=== PATIENT | female | born 1950 | race Caucasian/White ===

== ENCOUNTER → 2023-08-27 | Outpatient (CLI) | payer MEDICARE | END | disposition home or self-care (01) | LOC: LABPAT 13:42 | PROVIDERS: ATTEND Orthopaedic Surgery | DX: Z01.812 Encounter for preprocedural laboratory examination (principal); M16.12 Unilateral primary osteoarthritis, left hip; Z22.322 Carrier or suspected carrier of Methicillin resistant Staphylococcus aureus | CPT/HCPCS: 36415; 86850; 86900; 86901; 87070 ==

== ENCOUNTER 2023-09-08 09:19 | Day surgery (SDC) | payer MEDICARE, OTHER ==
[~2023-09-08 09:19] MED LIST: TRANEXAMIC 1,000 MG/100ML-NACL 1,000 MG in SALINE 1 100ML.BAG IVPB PRN
[2023-09-08] MEDS ORDERED: HYDROmorphone 0.5 MG/0.5 ML SYRINGE IVP PRN ×4 (09:34→12:46)
[2023-09-08] MEDS ORDERED: MIDAZOLAM 2 MG/2 ML VIAL IV PRN (09:34)
[2023-09-08] MEDS: MELOXICAM 7.5 MG TAB PO PRN (10:17)
[2023-09-08] MEDS: LACTATED RINGERS 1,000 ML IV SCH (10:17)
[2023-09-08] MEDS: GABAPENTIN 300 MG CAP PO PRN (10:17)
[2023-09-08] MEDS: ACETAMINOPHEN TAB 500 MG TAB PO PRN (10:18)
[2023-09-08] MEDS: ONDANSETRON 4 MG/2 ML VIAL IVP ONE (10:18)
[2023-09-08] MEDS: DEXAMETHASONE SOD PHOSPHATE 4 MG/ML 1 ML VIAL IV ONE (10:18)
[2023-09-08] MEDS: IV FLUID CONTINUATION 1,000 ML IV ONE (10:19)
[2023-09-08] MEDS: MIDAZOLAM 2 MG/2 ML VIAL IVP ONE (10:30)
--- NOTE | 2023-09-08 10:40 | P.ANPRN ---
Procedure Note - Anesthesia - Nerve Block Performed Left Prudencio Single Time Out Performed: Yes Date of Procedure: 09/08/23 Procedure Start Time: 10:29 Procedure Stop Time: 10:34 Location of Patient: PreOp Indication: Requested by Surgeon Sedation Type: Sedate with meaningful contact maintained Preparation: Sterile Prep, Sterile Dressing Position: Supine Catheter: None Needle Types: Pajunk Needle Gauge: 21 Ultrasound used to visualize needle placement: Yes Ultrasound used to observe medication spread: Yes Injectate: 0.5% Ropivacaine (see comment for volume) ([id number]) Blood Aspirated: No Pain Paresthesia on Injection Noted: No Resistance on Injection: Normal Image Stored and Saved: Yes Events: Uneventful and Well Tolerated
[2023-09-08] MEDS ORDERED: fentaNYL (PF) 50 MCG/ML 2 ML AMP ONE (10:59)
[2023-09-08] MEDS ORDERED: DEXAMETHASONE SOD PHOSPHATE 4 MG/ML 1 ML VIAL ONE (10:59)
[2023-09-08] MEDS ORDERED: PROPOFOL 10 MG/ML 20 ML VIAL IV ONE (10:59)
[2023-09-08] MEDS ORDERED: TRANEXAMIC 1,000 MG/100ML-NACL PREMIX BAG ONE (10:59)
[2023-09-08] MEDS ORDERED: KETOROLAC 15 MG/ML 1 ML VIAL ONE (10:59)
[2023-09-08] MEDS ORDERED: PHENYLEPHRINE-0.9% NACL SYG 1,000 MCG/10 ML SYRINGE ONE (10:59)
[2023-09-08] MEDS ORDERED: MIDAZOLAM 2 MG/2 ML VIAL ONE (10:59)
[2023-09-08] MEDS ORDERED: ROPIVACAINE 5 MG/ML 30 ML VIAL ONE (10:59)
[2023-09-08] MEDS: ceFAZolin 1,000 MG in SODIUM CHLORIDE 0.9% 1,000 ML IRRIGATION ONE (11:05)
[2023-09-08] MEDS: ROPIVACAINE 5 MG/ML 30 ML VIAL MISCELLANE ONE ×2 (11:41→12:08)
[2023-09-08] MEDS: LACTATED RINGERS 1,000 ML IV ONE (12:03)
--- NOTE | 2023-09-08 12:14 | P.OP ---
Date of Procedure: 09/08/23 Preoperative Diagnosis: Severe osteoarthritis left hip Postoperative Diagnosis: Severe osteoarthritis left hip Procedure(s) Performed: Left total hip arthroplasty with a direct anterior approach Implants: [employer] Polarstem standard size 3 with a collar [employer] R3, 3 hole hemispherical acetabular shell, 50 mm [employer] Reflection 6.5 mm cancellus screw, 20 mm 2 [employer] R3, XLPE 20 acetabular liner [employer] Oxinium femoral head 32 mm, +0 All components were press-fit. The articulation is Oxinium on polyethylene. Anesthesia: spinal Surgeon: Cipriano Patel Product Safety Professional #1: Lina Hebert Estimated Blood Loss (ml): 400 Pathology: none sent Condition: stable Disposition: PACU Indications for Procedure: After failure of conservative treatment we discussed the surgical and nonsurgi lalo treatment options at length. Patient wishes to proceed with a total hip arthroplasty with a direct anterior approach. Complications specific to this procedure were discussed at length, including but not limited to infection, leg length discrepancy, dislocation, nerve injury, and fracture. Covid-19 was also discussed at length with the patient, and they are aware of the current policies and procedures. The patient was given the option of delaying surgery, but they elect to proceed knowing these risks. Patient is aware of all these complications and informed consent was obtained Operative Findings: The operative findings are consistent with severe osteoarthritis of the left hip Description of Procedure: The patient was seen and evaluated in the preoperative area and the consent was reviewed. The operative site was marked with a skin marker. The patient verified the procedure and operative site. A REYES block was placed by anesthesia in the preoperative area. The patient was then brought to the operating room and given preoperative antibiotics intravenously. 1 g of Tranexamic acid was also given intravenously. A spinal anesthetic was administered by the anesthesia department. The patient was then placed on the [place] table with the bony prominences well-padded. The hip area was then prepped with a ChloraPrep solution and draped in the usual sterile fashion. A universal timeout was then performed, which confirmed the patient's name, surgical site, ALLERGIES, and procedure being performed on the consent. Next the incision site was located at 1 cm distal and 4 cm lateral to the anterior superior iliac spine. The skin and subcutaneous tissues were sharply incised. Incision was carefully dissected down to the fascia overlying the tensor fascia tati muscle. This fascia was then incised in line with the muscle fibers. Care was taken to stay laterally in order to avoid injuring the lateral femoral cu taneous nerve. Next, using blunt finger dissection, the tensor fascia tati muscle was dissected off its investing fascia. The muscle was then carefully retracted laterally with a cobra retractor over the lateral neck of the femur. Next, the circumflex vessels were identified and cauterized using the Aquamantis device. The anterior hip capsule was then exposed. The capsule was then opened and an inverted T fashion. The retractors were then placed intracapsularly. The retractors were maintained intracapsular throughout the procedure. The proximal femur was then visualized. Fluoroscopic x-rays were then taken in order to evaluate the preoperative leg lengths. A small amount of traction was placed on the leg. The femoral neck was then osteotomized at the appropriate level above the lesser trochanter. A small wedge of bone was then removed from the remaining femoral head. Next, using a corkscrew the femoral head was removed from the acetabulum. On gross visual inspection, the femoral head had complete loss of articular cartilage and multiple periarticular osteophytes. The femoral head was then measured. Attention was then turned to the acetabulum. The acetabulum was exposed and any remaining labrum was excised. Sequential reaming of the acetabulum was performed using fluoroscopic guidance until there was a good bed of bleeding cancellus bone. When the appropriate size was reached, a trial was then placed. The position and fit of the trial was checked with fluoroscopy. The trial was then removed. Then, using fluoroscopic guidance, the final implant was impacted at 20 of anteversion and 40 of abduction, and fully seated in the acetabulum. 2 screws were then placed in the acetabulum. Again fluoroscopy was used to check position of the screws. Next, the liner was then impacted, with a 20 elevated liner located in the anterior superior quadrant. Component locking was confirmed. Attention was then directed to the femur. With the aid of the [place] table, the femur was externally rotated to approximately 130, extended, and adducted under the opposite leg. A side hook was then placed under the proximal femur, and the side hook elevator was used to elevate the proximal femur while releasing the capsule. Retractors were then placed. A capsular release was performed, as well as a release of the conjoined tendon, which afforded excellent visua lization of the proximal femur. Next, a box osteotome was used to lateralize the proximal femur. A wool handler was then used to locate the femoral canal. Sequential broaching was then performed with appropriate size which afforded excellent fixation in the proximal femur. A trial was then placed with appropriate head and neck, and the hip was gently reduced with the aid of the [place] table. Fluoroscopy was then used to check position of the components, as well as to evaluate the leg lengths and offset. The leg lengths and offset were measured as closely as possible to ensure stability of the hip. The hip was then gently dislocated and the trials were then removed. Final implants were then impacted and the hip was again reduced. Final fluoroscopic x-rays confirmed that the components were in anatomic position. The leg lengths and offset were measured and were found to coincide with the trial measurements. The hip was also taken through range of motion, and found to be stable. The hip was then copiously irrigated with antibiotic solution with pulsatile lavage. The hip was then irrigated with Irrisept solution. The soft tissues were then injected with a ropivacaine solution. A second dose of 1 g of Tranexamic acid was also given intravenously. The fascia was then closed with 2-0 strata fix suture. The subcutaneous tissue was closed with 3-0 Vicryl. The subcuticular tissue was closed with 3-0 strata fix suture. The skin was then closed with Exofin skin glue. After the glue and dried, and Optifoam silver impregnated dressing was applied. The patient was then transferred to the recovery room in stable condition. The facilities maintenance assistant ROMEO Torres was required due to the complexity of surgery, and the need for skilled surgical rn for positioning, draping, exposure, retraction, and closure of the wound.
--- NOTE | 2023-09-08 12:34 | FL ---
EXAMINATION TYPE: FL guidance operating room DATE OF EXAM: 09/08/2023 HISTORY: Fluoroscopy time Total dose area product (DAP) in uGy*m?, mGy*cm? (or similar): 67904 IMPRESSION: 1. Fluoroscopy time.
[2023-09-08] MEDS ORDERED: MAGNESIUM HYDROXIDE 2,400 MG/30 ML CUP PO PRN (12:46)
[2023-09-08] MEDS ORDERED: NALOXONE 0.4 MG/ML 1 ML VIAL IV PRN (12:46)
[2023-09-08] MEDS ORDERED: ONDANSETRON 4 MG/2 ML VIAL IVP PRN (12:46)
--- NOTE | 2023-09-08 13:41 | XR ---
EXAMINATION TYPE: XR Hip Limited LT DATE OF EXAM: 09/08/2023 COMPARISON: NONE HISTORY: Postop TECHNIQUE: One view submitted. FINDINGS: There is postsurgical change compatible hip replacement surgery. IMPRESSION: 1. Postoperative change.
--- NOTE | 2023-09-08 16:14 | P.CONS ---
History of Present Illness - Reason for Consult Medical management - History of Present Illness 73-year-old white female [id number] white female who was admitted to the hospital under orthopedics for left hip arthroplasty. She is currently postop, she feels okay, minimal hip pain, no chest pain or shortness of breath no nausea no vomiting no dizziness. was admitted to the hospital under orthopedics for left hip arthroplasty. She's currently postop, she feels a, minimal hip pain, no chest pain or shortness of breath no nausea no vomiting no dizziness. Abdominal examination patient is in bed, family at bedside. Review of Systems 10 systems reviewed, pertinent positive and negative findings as in HPI.t n10 systems reviewed, perpositive and negative findings.left hip pain, no nausea or vomiting. Left hip pain, no nausea or vomiting. Past Medical History Past Medical History: Asthma, GERD/Reflux, Liver Disease, Osteoarthritis (OA) Additional Past Medical History / Comment(s): seasonal allegries, allergy induced asthma, mild fatty liver, christian hip pain. weak knees. bilateral ankle edema.pt History of Any Multi-Drug Resistant Organisms: None Reported Past Surgical History: Bariatric Surgery, Section Additional Past Surgical History / Comment(s): colonoscopy Past Anesthesia/Blood Transfusion Reactions: No Reported Reaction Smoking Status: Never smoker - Past Family History Father Family Medical History: Cancer Additional Family Medical History / Comment(s): colon cancer Mother Family Medical History: Congestive Heart Failure (CHF) Brother(s) Family Medical History: Diabetes Mellitus Medications and Allergies Home Medications Medication Instructions Recorded Confirmed Type Ibuprofen [Motrin Ib] 400 mg PO DIRECTED PRN 09/03/23 09/03/23 History Omeprazole 20 mg PO DAILY 09/03/23 09/03/23 History Unk Albuterol Inhaler 1 puff INHALATION DIRECTED PRN 09/03/23 09/03/23 History Aspirin 325 mg PO BID #60 tab 09/08/23 Rx HYDROcodone/APAP 7.5-325MG [[place] 1 - 2 tab PO Q6H PRN #32 tab 09/08/23 Rx 7.5-325] Sennosides [Senokot] 2 tab PO DAILY PRN #60 tablet 09/08/23 Rx Allergies Allergy/AdvReac Type Severity Reaction Status Date / Time No Known Allergies Allergy Verified 09/08/23 09:50 Physical Exam Vitals: Vital Signs Temp Pulse Resp BP Pulse Ox 09/08/23 15:00 60 18 137/52 99 09/08/23 14:30 52 L 18 147/66 99 09/08/23 14:00 56 L 16 137/64 100 09/08/23 13:30 61 18 144/65 99 09/08/23 13:15 62 18 131/56 99 09/08/23 13:00 54 L 18 136/63 99 09/08/23 12:41 97.3 F L 76 18 131/62 97 09/08/23 10:51 76 18 146/78 99 09/08/23 09:40 97.0 F L 79 18 173/71 98 Intake and Output 09/08/23 09/08/23 09/08/23 06:59 14:59 22:59 Intake Total 1451 Output Total 400 Balance 1051 Intake: IV 1451 Output: Estimated Blood Loss 400 Other: Weight 105.1 kg 105.1 kg Constitutional: No acute distress, conversant, pleasant Eyes: Anicteric sclerae, moist conjunctiva, no lid-lag, PERRLA ENMT: NC/AT,Oropharynx clear, no erythema, exudates Neck:Supple, FROM, no masses, or JVD, No carotid bruits; No thyromegaly Lungs: Clear to auscultation, Clear to percussion, Normal respiratory effort, no accessory muscle use Cardiovascular: Heart regular in rate and rhythm, No murmurs, gallops, or rubs no peripheral edema Abdominal: Soft Nontender, non distended, no guarding, no rebound or rigidity, Normoactive bowel sounds No hepatomegaly, No splenomegaly, No palpable mass No abdominal wall hernia noted Skin: Normal temperature, tone, texture, turgor, No induration No subcutaneous nodules, No rash, lesions, No ulcers Extremities:No digital cyanosis No clubbing, Pedal pulses intact and symme trical Radial pulses intact and symmetrical Normal gait and station, No calf tenderness Psychiatric: Alert and oriented to person, place and time, Appropriate affect Intact judgement Neuro: Muscles Strength 5/5 in all 4 extremities, Sensation to light touch grossly present throughout, Cranial nerves II-XII grossly intact. No focal sensory deficits Constitutional: No acute distress, conversant, pleasant Eyes: Anicteric sclerae, moist conjunctiva, no lid-lag, PERRLA ENMT: NC/AT,Oropharynx clear, no erythema, exudates Neck:Supple, FROM, no masses, or JVD, No carotid bruits; No thyromegaly Lungs: Clear to auscultation, Clear to percussion, Normal respiratory effort, no accessory muscle use Cardiovascular: Heart regular in rate and rhythm, No murmurs, gallops, or rubs no peripheral edema Abdominal: Soft Nontender, nom distended, no guarding, no rebound or rigidity, Normoactive bowel sounds No hepatomegaly, No splenomegaly, No palpable mass No abdominal wall hernia noted Skin: Normal temperature, tone, texture, turgor, No induration No subcutaneous nodules, No rash, lesions, No ulcers Extremities:No digital cyanosis No clubbing, Pedal pulses intact and symmetrical Radial pulses intact and symmetrical Normal gait and station, No calf tenderness Psychiatric: Alert and oriented to person, place and time, Appropriate affect Intact judgement Neuro: Muscles Strength 5/5 in all 4 extremities, Sensation to light touch grossly present throughout, Cranial nerves II-XII grossly intact. No focal sensory deficits Assessment and Plan Plan: Assessment andAssessment and plan 1. Left hip pain, chronic: Status post elective left total hip arthroplasty, pain control, PT OT, admitted under orthopedics. admitted under orthopedics. PT OT. 2. Morbid obesity: BMI 43.8. 3. GERD without esophagitis: Continue PPI. 4. Hyperlipidemia: Not on medications Thank you for the consultation
[2023-09-08] MEDS: SODIUM CHLORIDE 0.9% 1,000 ML IV SCH (17:19)
[2023-09-08] MEDS: ASPIRIN 325 MG TAB PO SCH (21:19)
[2023-09-08] MEDS: HYDROcodone/APAP 7.5-325MG 1 EACH TAB PO PRN (21:19)
[2023-09-08] MEDS: SENNOSIDES-DOCUSATE SODIUM 1 EACH TAB PO SCH (21:19)
[2023-09-09 09:08] VITALS: BP 139/80; PULSE 75; RESP 18; TEMP 97.5
[2023-09-09 09:08] LABS: Basophils # (A) 0.02 X 10*3/uL (0.00-0.10); Basophils % (A) 0.2 %; Eosinophils # (A) 0 X 10*3/uL (0.04-0.35); Eosinophils % (A) 0 %; HCT 35.9 % (37.2-46.3); HGB 11.3 g/dL (12.0-15.0); Lymphocytes # (A) 1.24 X 10*3/uL (0.90-5.00); Lymphocytes % (A) 11.4 %; MCH 28.9 pg (27.0-32.0); MCHC 31.5 g/dL (32.0-37.0); MCV 91.8 FL (80.0-97.0); Mean Platelet Volume 10.7 FL (9.5-12.2); Monocytes # (A) 0.72 X 10*3/uL (0.20-1.00); Monocytes % (A) 6.6 %; NRBC Per 100 WBC 0 X 10*3/uL (0.00-0.01); Neutrophils # (A) 8.84 X 10*3/uL (1.80-7.70); Neutrophils % (A) 81.3 %; Platelet Count 222 X 10*3/uL (140-440); RBC 3.91 X 10*6/uL (4.10-5.20); RDW 14.1 % (11.5-14.5); WBC 10.87 X 10*3/uL (4.50-10.00)
[2023-09-09] MEDS: PANTOPRAZOLE 40 MG TABLET PO SCH (09:30)
[2023-09-09] MEDS: HYDROcodone/APAP 7.5-325MG 1 EACH TAB PO PRN (09:31)
--- NOTE | 2023-09-09 10:00 | P.DS ---
Providers Expected date of discharge: 09/09/23 Attending physician: Cipriano Patel Consults: 09/08/23 12:46 Consult Physician Routine Consulting Provider: [facility] Consult Reason/Comments: medical management Do you want consulting provider notified?: Yes Primary care physician: Physician Nonstaff - Discharge Diagnosis(es) (1) Osteoarthritis of left hip Current Visit: Yes Status: Acute (2) S/P total left hip arthroplasty Current Visit: Yes Status: Acute Hospital Course: This is a 73-year-old female with known history of degenerative arthritis of the left hip. The patient presented for evaluation as an outpatient. After di scussion and consideration patient elects to proceed with total hip arthroplasty. The patient is seen preoperatively by Dr. Patel and medically cleared for surgery by their primary care physician. Patient is admitted to [facility] on 09/08/2023 for total hip arthroplasty. The procedure is performed without complication or sequelae. The patient is doing well postoperatively. Labs and vital signs are stable on day of discharge. On day of discharge patient's hip incision is healing well. There is minimal erythema. There is no drainage noted at this time. There is minimal soft ti ssue swelling to the hip and thigh. Patient has full foot and ankle motion without difficulty or pain. Calf is soft and nontender to palpation. Neurovascular status to the left lower extremity is intact. Patient is discharged home in good condition. Please see [facility] rec for accurate list of home medications. Plan - Discharge Summary Discharge Rx Participant: No New Discharge Prescriptions: New Aspirin 325 mg PO BID #60 tab Sennosides [Senokot] 2 tab PO DAILY PRN #60 tablet PRN Reason: Constipation HYDROcodone/APAP 7.5-325MG [[place] 7.5-325] 1 - 2 tab PO Q6H PRN #32 tab PRN Reason: Pain No Action Ibuprofen [Motrin Ib] 400 mg PO DIRECTED PRN PRN Reason: Pain Unk Albuterol Inhaler 1 puff INHALATION DIRECTED PRN PRN Reason: Wheezing Omeprazole 20 mg PO DAILY Discharge Medication List Ibuprofen [Motrin Ib] 400 mg PO DIRECTED PRN 09/03/23 [History] Omeprazole 20 mg PO DAILY 09/03/23 [History] Unk Albuterol Inhaler 1 puff INHALATION DIRECTED PRN 09/03/23 [History] Aspirin 325 mg PO BID #60 tab 09/08/23 [Rx] HYDROcodone/APAP 7.5-325MG [[place] 7.5-325] 1 - 2 tab PO Q6H PRN #32 tab 09/08/23 [Rx] Sennosides [Senokot] 2 tab PO DAILY PRN #60 tablet 09/08/23 [Rx] Follow up Appointment(s)/Referral(s): [facility] [[facility]] - 1-2 Days ([facility] will call you to schedule your in home physical therapy visits. ) Cipriano Patel DO [Doctor of Osteopathic Medicine] - 09/23/23 2:00 pm (With Lina) Activity/Diet/Wound Care/Special Instructions: Weightbearing as tolerated with walker. Leave dressing intact. Dressing may be removed by home care nurse or by patient in 7 days. Then change dressing twice daily until follow up. May shower with initial dressing intact and after removal. If dressing become saturated, please remove. Please take aspirin 325mg twice daily for 30 days to prevent blood clots. Recommend use of compression stockings daily until follow up to help prevent swelling and blood clots. May remove at night before sleeping. Please follow-up with [facility] in 2 weeks and call with any questions or concerns, . Discharge Disposition: HOME WITH HOME HEALTH SERVICES
--- NOTE | 2023-09-09 10:48 | P.PN ---
Subjective Progress Note Date: 09/09/23 Feels well today, and vomiting, no chest pain no abdominal nausea no vomiting no dizziness breath. Objective - Vital Signs Vital signs: Vital Signs Temp 97.5 F L 09/09/23 07:29 Pulse 75 09/09/23 07:29 Resp 18 09/09/23 07:29 BP 139/80 09/09/23 07:29 Pulse Ox 96 09/09/23 07:29 FiO2 Intake & Output 09/08/23 09/09/23 09/09/23 18:59 06:59 18:59 Intake Total 1451 Output Total 400 Balance 1051 Weight 105.1 kg Intake: IV 1451 Output: Estimated Blood Loss 400 Other: Voiding Method Toilet # Voids 1 - Exam Constitutional: No acute distress, conversant, pleasant Eyes: Anicteric sclerae, moist conjunctiva, no lid-lag, PERRLA ENMT: NC/AT,Oropharynx clear, no erythema, exudates Neck:Supple, FROM, no masses, or JVD, No carotid bruits; No thyromegaly Lungs: Clear to auscultation, Clear to percussion, Normal respiratory effort, no accessory muscle use Cardiovascular: Heart regular in rate and rhythm, No murmurs, gallops, or rubs no peripheral edema Abdominal: Soft Nontender, nom distended, no guarding, no rebound or rigidity, Normoactive bowel sounds No hepatomegaly, No splenomegaly, No palpable mass No abdominal wall hernia noted Skin: Normal temperature, tone, texture, turgor, No induration No subcutaneous nodules, No rash, lesions, No ulcers Extremities:No digital cyanosis No clubbing, Pedal pulses intact and symmetrical Radial pulses intact and symmetrical Normal gait and station, No calf tenderness Psychiatric: Alert and oriented to person, place and time, Appropriate affect I ntact judgement Neuro: Muscles Strength 5/5 in all 4 extremities, Sensation to light touch gross ly present throughout, Cranial nerves II-XII grossly intact. No focal sensory deficits - Labs CBC & Chem 7: 09/09/23 05:41 Labs: Abnormal Lab Results - Last 24 Hours (Table) 09/09/23 Range/Units 05:41 WBC 10.87 H (4.50-10.00) X 10*3/uL RBC 3.91 L (4.10-5.20) X 10*6/uL Hgb 11.3 L (12.0-15.0) g/dL Hct 35.9 L (37.2-46.3) % MCHC 31.5 L (32.0-37.0) g/dL Immature Gran # 0.05 H (0.00-0.04) X 10*3/uL Neutrophils # 8.84 H (1.80-7.70) X 10*3/uL Eosinophils # 0 L (0.04-0.35) X 10*3/uL Assessment and Plan Plan: Assessment andAssessment and plan 1. Left hip pain, chronic: Status post elective left total hip arthroplasty, pain control, PT OT, admitted under orthopedics.Improved. admitted under orthopedics. PT OT. 2. Morbid obesity: BMI 43.8. 3. GERD without esophagitis: Continue PPI. 4. Hyperlipidemia: Not on medications Thank you for the consultation disposition home today.
== END 2023-09-09 13:10 | disposition home health service (06) ==
LOC: OR 09:19 → 4SSUR 12:35 → OR 09-09 13:10
PROVIDERS: ATTEND Orthopaedic Surgery
DX: M16.12 Unilateral primary osteoarthritis, left hip (principal); E66.01 Morbid (severe) obesity due to excess calories; E78.5 Hyperlipidemia, unspecified; G89.29 Other chronic pain; J45.909 Unspecified asthma, uncomplicated; K21.9 Gastro-esophageal reflux disease without esophagitis; K76.0 Fatty (change of) liver, not elsewhere classified; Z68.41 Body mass index [BMI] 40.0-44.9, adult; Z79.82 Long term (current) use of aspirin; Z79.899 Other long term (current) drug therapy; Z80.0 Family history of malignant neoplasm of digestive organs
CPT/HCPCS: 97161; 97166; 64447; 85025; 73501; 27130; C1776; J2250; J1100; J0690 ×3; J2405; J2795